=== PATIENT | female | born 1985 ===

== ENCOUNTER 2018-05-15 07:12 | Day surgery (SDC) | payer OTHER ==
[~2018-05-15] VITALS: Ht 162.6 cm; Wt 100.0 kg
[~2018-05-15 07:12] MED LIST: BUPIVACAINE/PF 0.25% ONE
[2018-05-15] MEDS ORDERED: LACTATED RINGERS 1,000 ML IV SCH (07:49)
[2018-05-15] MEDS ORDERED: MULTIVITAMIN PO (07:53)
[2018-05-15] MEDS ORDERED: LIDOCAINE-MPF 1%, 2ML INFIL ONE (08:00)
[2018-05-15] MEDS ORDERED: ONDANSETRON ODT 8 MG PO ONE (08:00)
[2018-05-15] MEDS ORDERED: ACETAMINOPHEN 500 MG TABLET PO ONE (08:00)
[2018-05-15 08:26] VITALS: BP 124/88
[2018-05-15] MEDS ORDERED: LORazepam 2 MG/ML, 1ML IVPush PRN (08:30)
[2018-05-15] MEDS ORDERED: FENTANYL PF 100 MCG/2ML IV PRN (08:30)
[2018-05-15] MEDS ORDERED: HYDROmorphone 2 MG/ML, 1ML IVPush PRN (08:30)
[2018-05-15] MEDS ORDERED: PROMETHAZINE 25 MG/ML, 1ML IV PRN (08:30)
[2018-05-15] MEDS ORDERED: OXYcodone 5 MG/5 ML ORAL.SOL UDC PO PRN (08:30)
[2018-05-15 08:36] LABS: HCG UR SG 1.013 (1.003-1.030)
[2018-05-15] MEDS ORDERED: CALCIUM PO (08:36)
[2018-05-15] MEDS ORDERED: FISH OIL PO (08:36)
[2018-05-15] MEDS ORDERED: MIDAZOLAM 1 MG/ML, 2ML ONE (09:37)
[2018-05-15] MEDS ORDERED: FENTANYL PF 100 MCG/2ML ONE ×2 (09:37→10:28)
[2018-05-15] MEDS ORDERED: PROPOFOL 10 MG/ML, 20ML ONE (09:40)
[2018-05-15] MEDS ORDERED: DEXAMETHASONE 4 MG/ML, 1ML ONE (09:40)
[2018-05-15] MEDS ORDERED: LIDOCAINE 2% 100MG/5ML SYRINGE ONE (09:40)
[2018-05-15] MEDS ORDERED: KETOROLAC 30 MG/1 ML ONE (09:40)
== END 2018-05-15 13:05 | disposition home or self-care (01) ==
LOC: OUT 07:12
PROVIDERS: ATTEND Specialist
DX: N87.1 Moderate cervical dysplasia (principal)
CPT/HCPCS: 57522; 81025; 88305; 88307; J1100; J1885; J2250; J2704; J3010; J3490; J7120; Q0162